=== PATIENT | female | born 1990 | race American Indian/Alaskan Native ===

== ENCOUNTER 2021-03-30 10:47 | Inpatient (IN) | payer SELFPAY ==
--- NOTE | 2021-03-30 11:27 | Emergency Department Report ---
HPI - General Chief Complaint: Dyspnea/Respdistress Time Seen by Provider: 03/30/21 11:11 - HPI HPI: Room 36 The patient is a 30-year-old female present with a chief complaint shortness of breath. The patient states approximate 1 week ago she developed chills body aches fever 103F loss of sense of smell and taste and decreased appetite. Patient also had a cough productive of green sputum and felt dizzy at times. Patient states she was tested for Covid and tested + 03/24/2021. Patient states over the past 4 days she developed shortness of breath with speaking or any type of exertion and sometimes at rest. Patient states she was not vaccinated against Covid ED Past Medical Hx - Past Medical History Hx Asthma: Yes Additional medical history: Hypothyroid - Surgical History Past Surgical History?: No - Family History Family history: no significant - Social History Smoking Status: Never Smoker Substance Use Type: None (Denies illicit drug use), Alcohol (Occasional) ED Review of Systems ROS: Stated complaint: COVID+ Other details as noted in HPI Constitutional: fever Eyes: denies: eye pain ENT: other (Loss of sense of taste and smell) Respiratory: cough, shortness of breath, SOB with exertion Cardiovascular: denies: chest pain Endocrine: no symptoms reported Gastrointestinal: other (Decreased appetite). denies: nausea, vomiting Genitourinary: denies: dysuria Musculoskeletal: myalgia Neurological: denies: headache Physical Exam - Physical Exam Vital Signs: Vital Signs 03/30/21 10:49 Temperature 98.5 F Pulse Rate 100 H Respiratory 16 Rate Blood Pressure 134/90 [Left] O2 Sat by Pulse 100 Oximetry Physical Exam: GENERAL: The patient is well-developed well-nourished female lying on stretcher not appearing to be in acute distress. [] HEENT: Normocephalic. Atraumatic. Extraocular motions are intact. Patient has moist mucous membranes. NECK: Supple. Trachea midline CHEST/LUNGS: Clear to auscultation. There is no respiratory distress noted. HEART/CARDIOVASCULAR: Regular. There is no tachycardia. There is no gallop rub or murmur. ABDOMEN: Abdomen is soft, nontender. Patient has normal bowel sounds. There is no abdominal distention. SKIN: There is no rash. There is no edema. There is no diaphoresis. NEURO: The patient is awake, alert, and oriented. The patient is cooperative. The patient has no focal neurologic deficits. The patient has normal speech. GCS 15 MUSCULOSKELETAL: There is no evidence of acute injury. ED Course Vital Signs 03/30/21 10:49 Temperature 98.5 F Pulse Rate 100 H Respiratory 16 Rate Blood Pressure 134/90 [Left] O2 Sat by Pulse 100 Oximetry ED Medical Decision Making - Lab Data Result diagrams: 03/30/21 11:30 03/30/21 11:30 Laboratory Tests 03/30/21 03/30/21 03/30/21 11:30 11:30 11:30 WBC 3.0 L RBC 4.42 Hgb 10.9 Hct 34.6 MCV 78 L MCH 25 L MCHC 32 RDW 16.2 H Plt Count 279 Lymph % (Auto) 37.8 H [place] % (Auto) 6.5 Eos % (Auto) 2.9 Baso % (Auto) 0.4 Lymph # (Auto) 1.1 L [place] # (Auto) 0.2 Eos # (Auto) 0.1 Baso # (Auto) 0.0 Seg Neutrophils % 52.4 Seg Neutrophils # 1.6 L Sodium 139 Potassium 4.5 Chloride 103.6 Carbon Dioxide 21 L Anion Gap 19 BUN 7 Creatinine 0.6 Estimated GFR > 60 BUN/Creatinine Ratio 12 Glucose 97 Calcium 9.1 Troponin T < 0.010 NT-Pro-B Natriuret Pep < 5 HCG, Qual Negative - Radiology Data Radiology results: report reviewed (Chest x-ray), image reviewed (Chest x-ray) interpreted by me: Chest [id number] patchy infiltrate left lower lobe. No pneumothorax [facility] [address] [place] [address] XRay Report Signed Patient: MARGOT NEGRETE MR#: [id number] : 1990 Acct:[id number] Age/Sex: 30 / F ADM Date: 03/30/21 Loc: ED Atten [facility] Dr: Ordering Physician: KT IRENE MD Date of Service: 03/30/21 Procedure(s): XR chest 1V ap Accession Number(s): [id number] cc: KT IRENE MD Fluoro Time In Minutes: CHEST 1 VIEW 03/30/2021 12:50 PM INDICATION / CLINICAL INFORMATION: Shortness of breath, Covid positive. COMPARISON: None available. FINDINGS: SUPPORT DEVICES: None. HEART / MEDIASTINUM: No significant abnormality. LUNGS / PLEURA: No significant pulmonary or pleural abnormality. No pneumothorax. ADDITIONAL FINDINGS: No significant additional findings. IMPRESSION: 1. No acute findings. Signer Name: Julio C Connolly MD Signed: 1:17 PM Workstation Name: [id number] Transcribed By: SS Dictated By: Julio C Connolly MD Electronically Authenticated By: Julio C Connolly MD Signed Date/Time: 03/30/211316 DD/ 13 TD/TT: Print Cancel - Medical Decision Making Patient desats to the 60s on room air upon walking. Will admit the patient to the hospital - Differential Diagnosis Covid pneumonia Critical care attestation.: If time is entered above; I have spent that time in minutes in the direct care of this critically ill patient, excluding procedure time. ED Disposition Clinical Impression: Pneumonia due to COVID-19 virus Disposition: ADMITTED INPATIENT Is pt being admited?: Yes Does the pt Need Aspirin: Yes Condition: Serious Instructions: Bacterial Pneumonia (ED) Referrals: PRIMARY CARE, [Primary Care Provider] - 3-5 Days Time of Disposition: 13:40 (Hospitalist called (Dr. Black))
[2021-03-30 12:01] LABS: Basophils % (Auto) 0.4 % (0.0-1.8); Eosinophils # (Auto) 0.1 K/mm3 (0.0-0.4); Eosinophils % (Auto) 2.9 % (0.0-4.3); Hematocrit 34.6 % (30.3-42.9); Hemoglobin 10.9 gm/dl (10.1-14.3); Lymphocytes # (Auto) 1.1 K/mm3 (1.2-5.4); Lymphocytes % (Auto) 37.8 % (13.4-35.0); Mean Corpuscular HGB Conc 32 % (30-34); Mean Corpuscular Volume 78 fl (79-97); Monocytes # (Auto) 0.2 K/mm3 (0.0-0.8); Monocytes % (Auto) 6.5 % (0.0-7.3); Platelet Count 279 K/mm3 (140-440); Red Blood Count 4.42 M/mm3 (3.65-5.03); Red Cell Distribution Width 16.2 % (13.2-15.2)
[2021-03-30 12:09] LABS: Blood Urea Nitrogen 7 mg/dL (7-17); Calcium 9.1 mg/dL (8.4-10.2); Hemolysis Index 6
[2021-03-30 12:11] LABS: BUN/Creatinine Ratio 12
[2021-03-30] MEDS ORDERED: dexAMETHasone 20 MG/5 ML VIAL IM ONE (12:35)
--- NOTE | 2021-03-30 13:22 | XRay Report ---
CHEST 1 VIEW 03/30/2021 12:50 PM INDICATION / CLINICAL INFORMATION: Shortness of breath, Covid positive. COMPARISON: None available. FINDINGS: SUPPORT DEVICES: None. HEART / MEDIASTINUM: No significant abnormality. LUNGS / PLEURA: No significant pulmonary or pleural abnormality. No pneumothorax. ADDITIONAL FINDINGS: No significant additional findings. IMPRESSION: 1. No acute findings. Signer Name: Julio C Connolly MD Signed: 03/30/2021 1:17 PM Workstation Name: [id number]
[2021-03-30] MEDS ORDERED: cefTRIAXone/NS 1 GM/50 ML 1 GM/50 ML BAG IV ONE (13:42)
[2021-03-30] MEDS ORDERED: AZITHROMYCIN/NS 500 MG/250 ML 500 MG/250 ML BAG IV ONE (13:42)
[2021-03-30 14:45] LABS: C-Reactive Protein 0.3 mg/dL (0.00-1.30)
--- NOTE | 2021-03-30 17:08 | History and Physical Report ---
History of Present Illness Date of examination: 03/30/21 Date of admission: 03/30/21 16:24 Chief complaint: Fever cough and chills for 1 week. Shortness of breath for 2 to 3 days History of present illness: 30-year-old -[place] female with history of asthma and hypothyroidism comes in for shortness of breath for last 4 days. Patient developed fever chills and body ache and loss of smell and taste 1 week ago. Patient also cough productive of yellow sputum and felt lightheaded at times. Patient went for Covid testing and was tested positive on 03/24/2023 which is about 6 days ago. Patient is not vaccinated. With Covid vaccine. Exposure to Covid present. Here patient is hypoxic and 80-90 on room air and desaturates to low 80s with minimal walking. Any exertion is an exacerbating factor. Rest is a relieving factor. - Past Medical History --Asthma: Yes --Hypothyroid - Surgical History --Past Surgical History?: No - Family History --Family history: no significant - Social History --Smoking Status: Never Smoker --Substance Use Type: None (Denies illicit drug use), Alcohol (Occasional) Review of Systems ROS: Stated complaint: COVID+ Shortness of breath for 4 days Fever chills cough, yellow sputum loss of taste and loss of smell for 1 week Covid positive on 03/24/2021 Constitutional: fever Eyes: denies: eye pain ENT: other (Loss of sense of taste and smell) Respiratory: cough, shortness of breath, SOB with exertion Cardiovascular: denies: chest pain Endocrine: no symptoms reported Gastrointestinal: other (Decreased appetite). denies: nausea, vomiting Genitourinary: denies: dysuria Musculoskeletal: myalgia Neurological: denies: headache Medications and Allergies Allergies Allergy/AdvReac Type Severity Reaction Status Date / Time No Known Allergies Allergy Verified 03/30/21 10:48 Exam - Constitutional Vitals: Temp Pulse Resp BP Pulse Ox 98.5 F 89 13 100/56 99 03/30/21 10:49 03/30/21 16:46 03/30/21 16:46 03/30/21 16:46 03/30/21 16:46 General appearance: Present: mild distress, well-nourished - EENT Eyes: Present: PERRL ENT: hearing intact, clear oral mucosa - Neck Neck: Present: supple, normal ROM - Respiratory Respiratory effort: normal Respiratory: bilateral: CTA, wheezing (Scattered) - Cardiovascular Heart rate: 98 Rhythm: regular Heart Sounds: Present: S1 & S2. Absent: rub, click - Extremities Extremities: no ischemia, pulses intact, pulses symmetrical, No edema Peripheral Pulses: within normal limits - Abdominal General gastrointestinal: Present: soft, non-tender, non-distended, normal bowel sounds Female genitourinary: Present: normal - Rectal Rectal Exam: deferred - Integumentary Integumentary: Present: clear, warm, dry - Musculoskeletal Musculoskeletal: gait normal, strength equal bilaterally - Psychiatric Psychiatric: appropriate mood/affect, intact judgment & insight - Neurologic Neurologic: CNII-XII intact, moves all extremities - Allied Health Allied health notes reviewed: nursing, case management HEART Score - HEART Score History: Slightly suspicious Age: < 45 Risk factors: No known risk factors Troponin: Troponin T < 0.010 ng/mL (0.00-0.029) 03/30/21 11:30 Troponin: < normal limit - Critical Actions Critical Actions: 0-3 pts:0.9-1.7%risk of adverse cardiac event.Candidate for discharge Results - Labs CBC & Chem 7: 03/30/21 11:30 03/30/21 13:57 Labs: Laboratory Last Values WBC 3.0 K/mm3 (4.5-11.0) L 03/30/21 11:30 RBC 4.42 M/mm3 (3.65-5.03) 03/30/21 11:30 Hgb 10.9 gm/dl (10.1-14.3) 03/30/21 11:30 Hct 34.6 % (30.3-42.9) 03/30/21 11:30 MCV 78 fl (79-97) L 03/30/21 11:30 MCH 25 pg (28-32) L 03/30/21 11:30 MCHC 32 % (30-34) 03/30/21 11:30 RDW 16.2 % (13.2-15.2) H 03/30/21 11:30 Plt Count 279 K/mm3 (140-440) 03/30/21 11:30 Lymph % (Auto) 37.8 % (13.4-35.0) H 03/30/21 11:30 [place] % (Auto) 6.5 % (0.0-7.3) 03/30/21 11:30 Eos % (Auto) 2.9 % (0.0-4.3) 03/30/21 11:30 Baso % (Auto) 0.4 % (0.0-1.8) 03/30/21 11:30 Lymph # (Auto) 1.1 K/mm3 (1.2-5.4) L 03/30/21 11:30 [place] # (Auto) 0.2 K/mm3 (0.0-0.8) 03/30/21 11:30 Eos # (Auto) 0.1 K/mm3 (0.0-0.4) 03/30/21 11:30 Baso # (Auto) 0.0 K/mm3 (0.0-0.1) 03/30/21 11:30 Seg Neutrophils % 52.4 % (40.0-70.0) 03/30/21 11:30 Seg Neutrophils # 1.6 K/mm3 (1.8-7.7) L 03/30/21 11:30 D-Dimer 211.76 ng/mlDDU (0-234) 03/30/21 13:57 Sodium 139 mmol/L (137-145) 03/30/21 11:30 Potassium 4.5 mmol/L (3.6-5.0) 03/30/21 11:30 Chloride 103.6 mmol/L (98-107) 03/30/21 11:30 Carbon Dioxide 21 mmol/L (22-30) L 03/30/21 11:30 Anion Gap 19 mmol/L 03/30/21 11:30 BUN 7 mg/dL (7-17) 03/30/21 11:30 Creatinine 0.6 mg/dL (0.6-1.2) 03/30/21 11:30 Estimated GFR > 60 ml/min 03/30/21 11:30 BUN/Creatinine Ratio 12 % 03/30/21 11:30 Glucose 94 mg/dL (65-100) 03/30/21 13:57 Calcium 9.1 mg/dL (8.4-10.2) 03/30/21 11:30 Ferritin 14.1 ng/mL (10.0-200.0) 03/30/21 13:57 Lactate Dehydrogenase 203 units/L (91-180) H 03/30/21 13:57 Troponin T < 0.010 ng/mL (0.00-0.029) 03/30/21 11:30 C-Reactive Protein 0.30 mg/dL (0.00-1.30) 03/30/21 13:57 NT-Pro-B Natriuret Pep < 5 pg/mL (0-450) 03/30/21 11:30 HCG, Qual Negative (Negative) 03/30/21 11:30 Short CBC 03/30/21 Range/Units 11:30 WBC 3.0 L (4.5-11.0) K/mm3 Hgb 10.9 (10.1-14.3) gm/dl Hct 34.6 (30.3-42.9) % Plt Count 279 (140-440) K/mm3 BMP 03/30/21 03/30/21 11:30 13:57 Sodium 139 Potassium 4.5 Chloride 103.6 Carbon Dioxide 21 L BUN 7 Creatinine 0.6 Glucose 97 94 Calcium 9.1 Cardiac Enzymes 03/30/21 Range/Units 11:30 Troponin T < 0.010 (0.00-0.029) ng/mL - Imaging and Cardiology Chest x-ray: report reviewed Imaging and Cardiology: Chest x-ray Interpretation by radiology No acute findings My interpretation Bilateral pulmonary streaking present Assessment and Plan Advance Directives: Yes (Full code) VTE prophylaxis?: Chemical Plan of care discussed with patient/family: Yes - Patient Problems (1) Acute respiratory failure with hypoxia Current Visit: Yes Status: Acute Plan to address problem: Patient is hypoxic on room air and gets desaturated on minimal ambulation into the low 80s. Oxygen supplementation as necessary Respiratory therapy and assessment Treat Covid pneumonia prognosis is moderate (2) SIRS (systemic inflammatory response syndrome) Current Visit: Yes Status: Acute Plan to address problem: D-dimer and LDH slightly elevated Fever also supports SIRS (3) Bilateral pneumonia Current Visit: Yes Status: Acute Plan to address problem: Patient initiated on IV Zithromax and IV ceftriaxone (4) Pneumonia due to COVID-19 virus Current Visit: Yes Status: Acute Plan to address problem: Coronavirus PCR in a.m. Decadron 8 mg every 24 hours IV antibiotics (5) Asthma Current Visit: Yes Status: Chronic Qualifiers: Asthma persistence: intermittent Plan to address problem: Albuterol MDI 2 puffs 4 times daily as needed (6) Hypothyroidism Current Visit: Yes Status: Chronic Qualifiers: Hypothyroidism type: acquired Qualified Code(s): E03.9 - Hypothyroidism, unspecified Plan to address problem: Continue Synthroid (7) RBC microcytosis Current Visit: Yes Status: Acute Plan to address problem: Check iron levels (8) DVT prophylaxis Current Visit: Yes Status: Acute Plan to address problem: On Lovenox and GI prophylaxis (9) Advanced directives, counseling/discussion Current Visit: Yes Status: Acute Plan to address problem: Patient is full code
[2021-03-30] MEDS ORDERED: ONDANSETRON 4 MG/2 ML INJ IV PRN (17:25)
[2021-03-30] MEDS ORDERED: ACETAMINOPHEN 325 MG TAB PO PRN (17:25)
[2021-03-30] MEDS ORDERED: HYDROmorphone 1 MG/1 ML INJ IV PRN (17:29)
[2021-03-30] MEDS ORDERED: METOCLOPRAMIDE 10 MG/2 ML INJ IV PRN (17:29)
[2021-03-30] MEDS ORDERED: SODIUM CHLORIDE 0.9% 1000 ML 1,000 ML IV SCH (17:30)
[2021-03-30] MEDS ORDERED: dexAMETHasone 4 MG/ML VIAL IV SCH (18:00)
[2021-03-30] MEDS: ENOXAPARIN 40 MG/0.4 ML INJ SUB-Q SCH (19:29)
[2021-03-30] MEDS ORDERED: FAMOTIDINE 20 MG/2 ML INJ IV SCH (22:00)
[2021-03-30] MEDS: oxyCODONE /ACETAMINOPHEN 5-325MG TAB PO PRN (22:58)
[2021-03-31] MEDS: cefTRIAXone/NS 2 GM/100 ML 2 GM/100 ML BAG IV SCH (03:03)
[2021-03-31 07:23] LABS: Basophils % (Auto) 0.2 % (0.0-1.8); Hematocrit 32.6 % (30.3-42.9); Lymphocytes # (Auto) 0.6 K/mm3 (1.2-5.4); Lymphocytes % (Auto) 14.6 % (13.4-35.0); Mean Corpuscular HGB Conc 31 % (30-34); Mean Corpuscular Volume 77 fl (79-97); Monocytes # (Auto) 0.1 K/mm3 (0.0-0.8); Monocytes % (Auto) 3.4 % (0.0-7.3); Platelet Count 283 K/mm3 (140-440); Red Blood Count 4.23 M/mm3 (3.65-5.03); Red Cell Distribution Width 16.1 % (13.2-15.2)
[2021-03-31 07:44] LABS: Alanine Aminotransferase 27 units/L (7-56); Albumin 4.2 g/dL (3.9-5); Blood Urea Nitrogen 11 mg/dL (7-17); Calcium 9.3 mg/dL (8.4-10.2); Hemolysis Index 1
[2021-03-31 08:09] LABS: BUN/Creatinine Ratio 18
[2021-03-31] MEDS: dexAMETHasone 4 MG/ML VIAL IV SCH (11:14)
[2021-03-31] MEDS: ENOXAPARIN 40 MG/0.4 ML INJ SUB-Q SCH (11:14)
[2021-03-31] MEDS: FAMOTIDINE 20 MG TAB PO SCH ×2 (11:14→21:56)
[2021-03-31] MEDS ORDERED: AZITHROMYCIN/NS 500 MG/250 ML 500 MG/250 ML BAG IV SCH (15:00)
[2021-03-31] MEDS: oxyCODONE /ACETAMINOPHEN 5-325MG TAB PO PRN (21:55)
[2021-04-01] MEDS: cefTRIAXone/NS 2 GM/100 ML 2 GM/100 ML BAG IV SCH (02:46)
[2021-04-01] MEDS: ALBUTEROL 2.5 MG/3 ML NEBU IH PRN ×2 (06:22→08:03)
[2021-04-01] MEDS: ENOXAPARIN 40 MG/0.4 ML INJ SUB-Q SCH (10:36)
[2021-04-01] MEDS: dexAMETHasone 4 MG/ML VIAL IV SCH (10:36)
[2021-04-01] MEDS: FAMOTIDINE 20 MG TAB PO SCH ×2 (10:36→21:16)
[2021-04-01] MEDS: AZITHROMYCIN 250 MG TAB PO SCH (14:02)
[2021-04-02] MEDS: cefTRIAXone/NS 2 GM/100 ML 2 GM/100 ML BAG IV SCH (02:50)
[2021-04-02] MEDS: AZITHROMYCIN 250 MG TAB PO SCH (10:12)
[2021-04-02] MEDS: FAMOTIDINE 20 MG TAB PO SCH (10:12)
[2021-04-02] MEDS: dexAMETHasone 4 MG/ML VIAL IV SCH (10:13)
[2021-04-02] MEDS: ENOXAPARIN 40 MG/0.4 ML INJ SUB-Q SCH (10:13)
[2021-04-02 12:12] VITALS: BP 116/82
--- NOTE | 2021-04-02 17:10 | Progress Note ---
Assessment and Plan - Patient Problems (1) Acute respiratory failure with hypoxia Current Visit: Yes Status: Acute Plan to address problem: Patient is hypoxic on room air and gets desaturated on minimal ambulation into the low 80s. Oxygen supplementation as necessary Respiratory therapy and assessment Treat Covid pneumonia prognosis is moderate (2) SIRS (systemic inflammatory response syndrome) Current Visit: Yes Status: Acute Plan to address problem: D-dimer and LDH slightly elevated Fever also supports SIRS (3) Bilateral pneumonia Current Visit: Yes Status: Acute Plan to address problem: Patient initiated on IV Zithromax and IV ceftriaxone (4) Pneumonia due to COVID-19 virus Current Visit: Yes Status: Acute Plan to address problem: Coronavirus PCR in a.m. Decadron 8 mg every 24 hours IV antibiotics (5) Asthma Current Visit: Yes Status: Chronic Qualifiers: Asthma persistence: intermittent Plan to address problem: Albuterol MDI 2 puffs 4 times daily as needed (6) Hypothyroidism Current Visit: Yes Status: Chronic Qualifiers: Hypothyroidism type: acquired Qualified Code(s): E03.9 - Hypothyroidism, unspecified Plan to address problem: Continue Synthroid (7) RBC microcytosis Current Visit: Yes Status: Acute Plan to address problem: Check iron levels (8) DVT prophylaxis Current Visit: Yes Status: Acute Plan to address problem: On Lovenox and GI prophylaxis (9) Advanced directives, counseling/discussion Current Visit: Yes Status: Acute Plan to address problem: Patient diagnosis prognosis and treatment discussed, patient understands the treatment plan. Patient is full code +30 minutes Subjective Date of service: 03/31/21 Principal diagnosis: Pneumonia and asthma exacerbation Interval history: 30-year-old -[place] female with history of asthma and hypothyroidism comes in for shortness of breath for last 4 days. Patient developed fever chills and body ache and loss of smell and taste 1 week ago. Patient also cough productive of yellow sputum and felt lightheaded at times. Patient went for Covid testing and was tested positive on 03/24/2023 which is about 6 days ago. Patient is not vaccinated. With Covid vaccine. Exposure to Covid present. Here patient is hypoxic and 80-90 on room air and desaturates to low 80s with minimal walking. Any exertion is an exacerbating factor. Rest is a relieving factor. 03/31/2021 Covid test negative Still wheezing and short of breath Afebrile Objective - Constitutional Vitals: Vital Signs - 12hr 04/02/21 04/02/21 04/02/21 05:26 08:00 10:46 Temperature 97.8 F 98.3 F Pulse Rate 69 72 Respiratory 16 18 20 Rate Blood Pressure 112/79 116/82 O2 Sat by Pulse 98 100 99 Oximetry General appearance: Present: no acute distress, well-nourished - EENT Eyes: PERRL, EOM intact ENT: hearing intact, clear oral mucosa Ears: bilateral: normal - Neck Neck: supple, normal ROM - Respiratory Respiratory effort: normal Respiratory: bilateral: CTA, rhonchi, wheezing - Breasts Breasts: normal - Cardiovascular Heart rate: 78 Rhythm: regular Heart Sounds: Present: S1 & S2. Absent: gallop, rub Extremities: pulses intact, No edema, normal color, Full ROM - Gastrointestinal General gastrointestinal: Present: soft, non-tender, non-distended, normal bowel sounds - Genitourinary Female genitourinary: normal - Integumentary Integumentary: clear, warm, dry - Musculoskeletal Musculoskeletal: 1, strength equal bilaterally - Neurologic Neurologic: moves all extremities - Psychiatric Psychiatric: memory intact, appropriate mood/affect, intact judgment & insight - Labs CBC & Chem 7: 03/31/21 06:22 03/31/21 06:22 HEART Score - HEART Score Age: < 45 Risk factors: No known risk factors Troponin: Troponin T < 0.010 ng/mL (0.00-0.029) 03/30/21 11:30 Troponin: < normal limit - Critical Actions Critical Actions: 0-3 pts:0.9-1.7%risk of adverse cardiac event.Candidate for discharge
--- NOTE | 2021-04-02 17:13 | Progress Note ---
Assessment and Plan - Patient Problems (1) Acute respiratory failure with hypoxia Current Visit: Yes Status: Acute Plan to address problem: Patient is hypoxic on room air and gets desaturated on minimal ambulation into the low 80s. Oxygen supplementation as necessary Respiratory therapy and assessment Treat Covid pneumonia prognosis is moderate (2) SIRS (systemic inflammatory response syndrome) Current Visit: Yes Status: Acute Plan to address problem: D-dimer and LDH slightly elevated Fever also supports SIRS (3) Bilateral pneumonia Current Visit: Yes Status: Acute Plan to address problem: Patient initiated on IV Zithromax and IV ceftriaxone (4) Pneumonia due to COVID-19 virus Current Visit: Yes Status: Acute Plan to address problem: Covid ruled out 62 (5) Asthma Current Visit: Yes Status: Chronic Qualifiers: Asthma persistence: intermittent Plan to address problem: Albuterol MDI 2 puffs 4 times daily as needed (6) Hypothyroidism Current Visit: Yes Status: Chronic Qualifiers: Hypothyroidism type: acquired Qualified Code(s): E03.9 - Hypothyroidism, unspecified Plan to address problem: Continue Synthroid (7) RBC microcytosis Current Visit: Yes Status: Acute Plan to address problem: Check iron levels (8) DVT prophylaxis Current Visit: Yes Status: Acute Plan to address problem: On Lovenox and GI prophylaxis (9) Advanced directives, counseling/discussion Current Visit: Yes Status: Acute Plan to address problem: Patient diagnosis prognosis and treatment discussed, patient understands the treatment plan. Patient is full code +30 minutes Subjective Date of service: 04/01/21 Principal diagnosis: Pneumonia and asthma exacerbation Interval history: 30-year-old -[place] female with history of asthma and hypothyroidism comes in for shortness of breath for last 4 days. Patient developed fever chills and body ache and loss of smell and taste 1 week ago. Patient also cough productive of yellow sputum and felt lightheaded at times. Patient went for Covid testing and was tested positive on 03/24/2023 which is about 6 days ago. Patient is not vaccinated. With Covid vaccine. Exposure to Covid present. Here patient is hypoxic and 80-90 on room air and desaturates to low 80s with minimal walking. Any exertion is an exacerbating factor. Rest is a relieving factor. 03/31/2021 Covid test negative Still wheezing and short of breath Afebrile 04/01/2021 Patient is Covid negative Still short of breath and wheezing Objective - Constitutional Vitals: Vital Signs - 12hr 04/02/21 04/02/21 04/02/21 05:26 08:00 10:46 Temperature 97.8 F 98.3 F Pulse Rate 69 72 Respiratory 16 18 20 Rate Blood Pressure 112/79 116/82 O2 Sat by Pulse 98 100 99 Oximetry General appearance: Present: mild distress, well-nourished - EENT Eyes: PERRL, EOM intact ENT: hearing intact, clear oral mucosa Ears: bilateral: normal - Neck Neck: supple, normal ROM - Respiratory Respiratory effort: normal Respiratory: bilateral: CTA, rhonchi, wheezing - Breasts Breasts: normal - Cardiovascular Heart rate: 78 Rhythm: regular Heart Sounds: Present: S1 & S2. Absent: gallop, rub Extremities: pulses intact, No edema, normal color, Full ROM - Gastrointestinal General gastrointestinal: Present: soft, non-tender, non-distended, normal bowel sounds - Genitourinary Female genitourinary: normal - Integumentary Integumentary: clear, warm, dry - Musculoskeletal Musculoskeletal: 1, strength equal bilaterally - Neurologic Neurologic: moves all extremities - Psychiatric Psychiatric: memory intact, appropriate mood/affect, intact judgment & insight - Labs CBC & Chem 7: 03/31/21 06:22 03/31/21 06:22 HEART Score - HEART Score Age: < 45 Risk factors: No known risk factors Troponin: Troponin T < 0.010 ng/mL (0.00-0.029) 03/30/21 11:30 Troponin: < normal limit - Critical Actions Critical Actions: 0-3 pts:0.9-1.7%risk of adverse cardiac event.Candidate for d ischarge
--- NOTE | 2021-04-02 17:14 | Discharge Summary ---
Providers - Providers Date of Admission: 03/30/21 16:24 Date of discharge: 04/02/21 Attending physician: NAHED LARA Primary care physician: MATE FOURTH Hospitalization Condition: Serious Hospital course: Subjective Date of service: 04/02/21 Principal diagnosis: Pneumonia and asthma exacerbation Interval history: 30-year-old -[place] female with history of asthma and hypothyroidism comes in for shortness of breath for last 4 days. Patient developed fever chills and body ache and loss of smell and taste 1 week ago. Patient also cough productive of yellow sputum and felt lightheaded at times. Patient went for Covid testing and was tested positive on 03/24/2023 which is about 6 days ago. Patient is not vaccinated. With Covid vaccine. Exposure to Covid present. Here patient is hypoxic and 80-90 on room air and desaturates to low 80s with minimal walking. Any exertion is an exacerbating factor. Rest is a relieving factor. 03/31/2021 Covid test negative Still wheezing and short of breath Afebrile 04/01/2021 Patient is Covid negative Still short of breath and wheezing 04/02/2021 Patient feeling much better Patient is on room air No wheezing Patient is willing to be discharged Patient was given discharge instructions including nebulizer treatments oral antibiotics and low-dose prednisone Assessment and Plan - Patient Problems (1) Acute respiratory failure with hypoxia Current Visit: Yes Status: Acute Plan to address problem: Patient on room air (2) SIRS (systemic inflammatory response syndrome) Current Visit: Yes Status: Acute Plan to address problem: Resolved (3) Bilateral pneumonia Current Visit: Yes Status: Acute Plan to address problem: Patient to be discharged on oral Levaquin for another 5 days (4) Pneumonia due to COVID-19 virus Current Visit: Yes Status: Acute Plan to address problem: Covid ruled out (5) Asthma Current Visit: Yes Status: Chronic Qualifiers: Asthma persistence: intermittent Plan to address problem: Albuterol MDI 2 puffs 4 times daily as needed Duo nebs at home on a as needed basis Prescription given (6) Hypothyroidism Current Visit: Yes Status: Chronic Qualifiers: Hypothyroidism type: acquired Qualified Code(s): E03.9 - Hypothyroidism, unspecified Plan to address problem: Continue Synthroid (7) RBC microcytosis Current Visit: Yes Status: Acute Plan to address problem: Check iron levels (8) DVT prophylaxis Current Visit: Yes Status: Acute Plan to address problem: On Lovenox and GI prophylaxis (9) Advanced directives, counseling/discussion Current Visit: Yes Status: Acute Plan to address problem: Patient diagnosis prognosis and treatment discussed, patient understands the treatment plan. Patient is full code +30 minutes Disposition: 01 HOME / SELF CARE / HOMELESS Final Discharge Diagnosis (Prints w/discharge instructions): Acute respiratory failure with hypoxia. Sirs. Bilateral pneumonia. PUI. Asthma. Hypothyroidism. Microcytosis Time spent for discharge: 35 minutes - Discharge Diagnoses (1) Acute respiratory failure with hypoxia Status: Acute (2) SIRS (systemic inflammatory response syndrome) Status: Acute (3) Bilateral pneumonia Status: Acute (4) Pneumonia due to COVID-19 virus Status: Acute (5) Asthma Status: Chronic Qualifiers: Asthma persistence: intermittent (6) Hypothyroidism Status: Chronic Qualifiers: Hypothyroidism type: acquired Qualified Code(s): E03.9 - Hypothyroidism, unspecified (7) RBC microcytosis Status: Acute (8) DVT prophylaxis Status: Acute (9) Advanced directives, counseling/discussion Status: Acute Core Measure Documentation - Palliative Care Palliative Care/ Comfort Measures: Not Applicable - Core Measures Any of the following diagnoses?: none Exam - Constitutional Vitals: Temp Pulse Resp BP Pulse Ox 98.3 F 72 20 116/82 99 04/02/21 10:46 04/02/21 10:46 04/02/21 10:46 04/02/21 10:46 04/02/21 10:46 General appearance: Present: no acute distress, well-nourished - EENT Eyes: Present: PERRL ENT: hearing intact, clear oral mucosa - Neck Neck: Present: supple, normal ROM - Respiratory Respiratory effort: normal Respiratory: bilateral: CTA - Cardiovascular Heart rate: 78 Rhythm: regular Heart Sounds: Present: S1 & S2. Absent: rub, click - Extremities Extremities: no ischemia, pulses intact, pulses symmetrical, No edema Peripheral Pulses: within normal limits - Abdominal General gastrointestinal: Present: soft, non-tender, non-distended, normal bowel sounds Female genitourinary: Present: normal - Rectal Rectal Exam: deferred - Integumentary Integumentary: Present: clear, warm, dry - Musculoskeletal Musculoskeletal: gait normal, strength equal bilaterally - Psychiatric Psychiatric: appropriate mood/affect, intact judgment & insight - Neurologic Neurologic: CNII-XII intact, moves all extremities - Allied Health Allied health notes reviewed: nursing, case management Plan Activity: no restrictions Diet: regular Durable Medical Equipment Needed Upon Discharge: other Additional Instructions: Nebulizer tubing Follow up with: PRIMARY CARE, [Primary Care Provider] - 3-5 Days LETTY JOSEPH MD [Staff Physician] - 7 Days
== END 2021-04-02 19:22 | disposition home or self-care (01) | DRG 193 ==
LOC: ED 10:47 → 3A 16:24 → OBSVTOIN 16:24 → 3A 19:26
PROVIDERS: ADMIT Internal Medicine; ATTEND Internal Medicine
DX: J18.9 Pneumonia, unspecified organism (principal); J96.01 Acute respiratory failure with hypoxia; R65.10 Systemic inflammatory response syndrome (SIRS) of non-infectious origin without acute organ dysfunction; J45.909 Unspecified asthma, uncomplicated; E03.9 Hypothyroidism, unspecified; Z20.822 Contact with and (suspected) exposure to COVID-19
CPT/HCPCS: 36415; 71045; 80048; 80053; 82728; 82947; 83036; 83615; 83880; 84145; 84484; 84703; 85025; 85379; 86140; 94640; G0378; J3490; J0456; J0696; J1100; J1650; U0003